=== PATIENT | male | born 1965 | race Caucasian/White ===

== ENCOUNTER 2024-10-22 15:02 | Emergency (ER) | payer MEDICARE, OTHER ==
[~2024-10-22] VITALS: Ht 177.8 cm; Wt 58.1 kg
[2024-10-22] MEDS ORDERED: DEXTROSE 50%-WATER 50 ML DISP.SYRIN ONE (15:24)
[2024-10-22] MEDS: DEXTROSE 50%-WATER 50 ML DISP.SYRIN IVP ONE (15:39)
[2024-10-22 16:05] LABS: ALBUMIN 2.7 g/dL (3.4-5.0); BILIRUBIN,DIRECT 14.1 mg/dL (0.0-0.2); BILIRUBIN,TOTAL 17.1 mg/dL (0.2-1.0); CALCIUM, SERUM 9.1 mg/dL (8.5-10.1); CREATININE 1.3 mg/dL (0.6-1.3); POTASSIUM 4.4 mmol/L (3.5-5.1)
[2024-10-22 16:09] LABS: BASOPHILS % (AUTO) 0.4 % (0.0-2.0); EOSINOPHILS # (AUTO) 8.8 K/uL (0.0-0.7); HEMATOCRIT 29 % (39-51); HEMOGLOBIN 8.4 g/dL (13.5-17.5); LYMPHOCYTES # (AUTO) 0.4 K/uL (0.8-4.8); LYMPHOCYTES % (AUTO) 3.6 % (20.0-44.0); MEAN CORPUSCULAR HEMOGLOBIN 33 PG (26.0-33.0); MEAN CORPUSCULAR HGB CONC 29 g/dl (31.0-36.0); MEAN CORPUSCULAR VOLUME 115 fL (80-96); MONOCYTES # (AUTO) 0.1 K/uL (0.1-1.30); MONOCYTES % (AUTO) 1.4 % (2.0-12.0); NEUTROPHILS # (AUTO) 0.8 K/uL (1.8-8.9); NEUTROPHILS % (AUTO) 7.6 % (43.0-81.0); PLATELET COUNT (AUTO) 165 K/uL (150-450); RED BLOOD CELL COUNT(AUTO) 2.52 MIL/uL (4.5-6.0); RED CELL DISTRIBUTION WIDTH 18.6 % (11.5-15.0); WHITE BLOOD COUNT (AUTO) 10.1 K/uL (4.3-11.0)
[2024-10-22 17:24] LABS: APPEARANCE,URINE CLEAR (CLEAR); BILIRUBIN,URINE 3+ (NEGATIVE); BLOOD, URINE NEGATIVE Ery/uL (NEGATIVE); KETONES,URINE 1+ mg/dL (NEGATIVE); LEUKOCYTE ESTERASE ,URINE NEGATIVE (NEGATIVE); NITRITE, URINE NEGATIVE (NEGATIVE); PROTEIN,URINE TRACE mg/dl (NEGATIVE); UGLUCOSE TRACE mg/dL (NEGATIVE)
[2024-10-22 17:44] LABS: COLOR,URINE AMBER (YELLOW)
[2024-10-22 17:55] LABS: ADD URINE CULTURE NO; BACTERIA,URINE Few /HPF (None Seen); CALCIUM OXALATE CRYSTALS,UR Rare /HPF (None Seen); RBC,URINE 0-2 /HPF (0-2); SQUAMOUS EPITHELIAL CELL,UR None Seen /HPF (None Seen); URINE AMORPHOUS URATE Few /HPF (None Seen); WBC,URINE 0-2 /HPF (0-3)
[2024-10-22] MEDS ORDERED: IV NS 0.9% 250 ML IV ONE (18:27)
[2024-10-22] MEDS ORDERED: IOHEXOL-300 100 ML VIAL IV ONE (18:27)
[2024-10-22 18:37] LABS: ANISOCYTOSIS 3+; BASOPHILS % (MANUAL) 0 % (0.0-2.0); EOSINOPHILS % (MANUAL) 0 % (0-4); LYMPHOCYTES % (MANUAL) 6 % (16-48); MONOCYTES % (MANUAL) 4 % (0-11.0); NEUTROPHILS % (MANUAL) 90 (42-76); PLATELET ESTIMATE ADEQUATE
[2024-10-22 19:12] LABS: OVALOCYTES 1+
[2024-10-22] MEDS: LIDOCAINE 1% INJ 50 ML MDV IJ ONE (21:00)
[2024-10-22 21:22] LABS: INR 1.1 (0.91-1.10); PARTIAL THROMBOPLASTIN TIME 31.9 SEC (24.3-34.3); PROTHROMBIN TIME 11.6 SECS (9.2-11.1)
[2024-10-22] MEDS ORDERED: TDAP [DIPH/PERTUSSIS/TET] 0.5 ML VIAL IM ONE (21:42)
[2024-10-22] MEDS: TDAP [DIPH/PERTUSSIS/TET] 0.5 ML VIAL IM ONE (21:50)
[2024-10-23 02:59] VITALS: BP 134/70; TEMP 98.2; O2SAT 100
== END 2024-10-23 02:59 | disposition short-term general hospital (02) ==
LOC: ER 15:10
DX: K72.90 Hepatic failure, unspecified without coma (principal); L02.213 Cutaneous abscess of chest wall; L03.011 Cellulitis of right finger; Z20.822 Contact with and (suspected) exposure to COVID-19; Z94.4 Liver transplant status
CPT/HCPCS: 99285; 71260; 96374; 10060; 76705; 87426; 90471; 90715; 74177; 82140; 85025; 80048; 87040; 83605; 83690; 80076; 81001; 36415; 85730; 82962 ×2; 85007; J3490; J7050; Q9967